=== PATIENT | male | born 1965 | race African-American/Black ===

== ENCOUNTER 2021-11-20 22:48 | Emergency (ER) | payer OTHER ==
[~2021-11-20] VITALS: Ht 170.2 cm; Wt 86.2 kg
[2021-11-20 22:58] VITALS: BP_SYST 133
== END 2021-11-21 00:04 | disposition home or self-care (01) ==
LOC: SED 22:48
DX: Z04.1 Encounter for examination and observation following transport accident (principal); V49.49XA Driver injured in collision with other motor vehicles in traffic accident, initial encounter; Y93.89 Activity, other specified; Y92.89 Other specified places as the place of occurrence of the external cause; Y99.8 Other external cause status
CPT/HCPCS: 82962; 99283